=== PATIENT | female | born 1955 | race Hispanic/Latino ===

== ENCOUNTER 2020-01-01 13:22 | Emergency (ER) | payer OTHER ==
[2020-01-01] MEDS ORDERED: ONDANSETRON ODT 4 MG TAB ONE (16:03)
[2020-01-01] MEDS ORDERED: HYDROCODONE/ACETAMINOPHEN 10/325 MG TAB ONE (16:04)
[2020-01-01] MEDS ORDERED: KETOROLAC TROMETHAMINE 30MG/ML ONE (16:24)
[2020-01-01] MEDS ORDERED: DEXAMETHASONE SOD PHOSPHATE 10MG/ML 1ML VIAL ONE (16:38)
== END 2020-01-01 17:08 | disposition home or self-care (01) ==
LOC: EDH 13:22
DX: G56.02 Carpal tunnel syndrome, left upper limb (principal); M25.532 Pain in left wrist; E11.9 Type 2 diabetes mellitus without complications
CPT/HCPCS: 82948; 96372 ×2; 99284; J1100; J1885